=== PATIENT | male | born 1950 | race African-American/Black ===

== ENCOUNTER 2025-03-15 14:11 | Inpatient (IN) | payer MEDICARE, OTHER ==
[~2025-03-15] VITALS: Ht 165.1 cm; Wt 74.8 kg
[2025-03-15 14:51] LABS: PLATELET COUNT (AUTO) 205 K/uL (150-450); RED BLOOD CELL COUNT(AUTO) 4.83 MIL/uL (4.5-6.0); RED CELL DISTRIBUTION WIDTH 15.4 % (11.5-15.0); WHITE BLOOD COUNT (AUTO) 6.0 K/uL (4.3-11.0)
[2025-03-15 14:58] LABS: CALCIUM, SERUM 8.7 mg/dL (8.5-10.1); CREATININE 1.1 mg/dL (0.6-1.3); SODIUM SERUM 144 mmol/L (136-145); UREA NITROGEN, BLOOD 15 mg/dL (7-18)
[2025-03-15 15:04] LABS: ASPARTATE AMINOTRANSFERASE 7 U/L (15-37); INR 1.01 (0.91-1.10); TOTAL PROTEIN, SERUM 7.8 g/dL (6.4-8.2)
[2025-03-15] MEDS ORDERED: METF-440 PO (15:20)
[2025-03-15] MEDS ORDERED: ACET325T53 PO (15:20)
[2025-03-15] MEDS ORDERED: DIVA500T4 PO (15:20)
[2025-03-15] MEDS ORDERED: ASCO500T20 PO (15:20)
[2025-03-15] MEDS ORDERED: FERR-56 PO (15:20)
[2025-03-15] MEDS ORDERED: QUET25TA PO (15:20)
[2025-03-15] MEDS ORDERED: MEMA10TA PO (15:20)
[2025-03-15] MEDS ORDERED: IPRA3AMP23 IH (15:20)
[2025-03-15] MEDS ORDERED: ATOR10TA PO (15:20)
[2025-03-15] MEDS ORDERED: ASPI-1169 PO (15:20)
[2025-03-15] MEDS ORDERED: PANT40TA49 PO (15:20)
[2025-03-15] MEDS ORDERED: CLON0.1T PO (15:20)
[2025-03-15] MEDS ORDERED: MULT-213 PO (15:20)
[2025-03-15] MEDS ORDERED: AMLO-212 PO (15:20)
[2025-03-15] MEDS ORDERED: DOCU100C36 PO (15:20)
[2025-03-15] MEDS: ENOXAPARIN SODIUM 40 MG/0.4 ML DISP.SYRIN SQ SCH (17:30)
[2025-03-15] MEDS ORDERED: ONDANSETRON HCL/PF 4 MG/2 ML VIAL IVP PRN (17:30)
[2025-03-15] MEDS ORDERED: MAGNESIUM HYDROXIDE 30 ML UDC PO PRN ×2 (17:30→23:00)
[2025-03-15] MEDS ORDERED: MAG HYDROX/AL HYDROX/SIMETH 30 ML UDC PO PRN ×2 (17:30→23:00)
[2025-03-15] MEDS ORDERED: ACETAMINOPHEN 325 MG TABLET PO PRN ×3 (17:30→23:00)
[2025-03-15] MEDS ORDERED: ZOLPIDEM TARTRATE 5 MG TABLET PO PRN (17:30)
[2025-03-15] MEDS ORDERED: CLONIDINE HCL 0.1 MG TABLET PO PRN (17:30)
[2025-03-15] MEDS ORDERED: Medication Not On Formulary EA (Ipratropium/Albuterol Sulfate (Duoneb 2.5-0.5 Mg/3 Ml So IH PRN (17:30)
[2025-03-15] MEDS ORDERED: Z GUARD REMEDY 4 OZ OINT TP PRN (17:30)
[2025-03-15] MEDS ORDERED: DIVALPROEX SODIUM 500 MG TABLET.DR PO SCH (21:00)
[2025-03-15] MEDS ORDERED: QUETIAPINE FUMARATE 25 MG TABLET PO SCH (22:00)
[2025-03-15] MEDS: ATORVASTATIN 10 MG TABLET PO SCH (22:00)
[2025-03-15] MEDS ORDERED: TEMAZEPAM 7.5 MG CAPSULE PO PRN ×2 (23:00)
[2025-03-15] MEDS ORDERED: LORAZEPAM 1 MG TABLET PO PRN ×2 (23:00)
[2025-03-15] MEDS ORDERED: ALBUTEROL FS 2.5 MG/0.5 ML VIAL.NEB NEB PRN (23:45)
[2025-03-15] MEDS ORDERED: IPRATROPIUM NEB FS 0.5 MG/2.5 ML AMPUL.NEB IH PRN (23:45)
[2025-03-15 23:47] VITALS: BP 125/78; TEMP 98; O2SAT 98
[2025-03-16] MEDS: BLOOD SUGAR DIAGNOSTIC 1 EACH STRIP IN ONE (00:01)
[2025-03-16] MEDS: PANTOPRAZOLE 40 MG TABLET.DR PO SCH (06:35)
[2025-03-16] MEDS: FERROUS SULFATE (325 MG) 325 MG/TAB TABLET PO SCH (06:35)
[2025-03-16] MEDS ORDERED: PANTOPRAZOLE 40 MG TABLET.DR PO SCH (07:30)
[2025-03-16 08:00] VITALS: BP 142/95; TEMP 97.8; O2SAT 100
[2025-03-16] MEDS: ENSURE ENLIVE CHOC 237 ML CAN PO SCH (08:00)
[2025-03-16] MEDS: DOCUSATE SODIUM 100 MG CAPSULE PO SCH (08:37)
[2025-03-16] MEDS: AMLODIPINE BESYLATE 5 MG TABLET PO SCH (08:37)
[2025-03-16] MEDS: METFORMIN 500 MG TABLET PO SCH (08:37)
[2025-03-16] MEDS: ASCORBIC ACID 500 MG TABLET PO SCH (08:37)
[2025-03-16] MEDS: MEMANTINE HCL 5 MG TABLET PO SCH (08:37)
[2025-03-16] MEDS: ASPIRIN 81 MG TAB.CHEW PO SCH (08:37)
[2025-03-16] MEDS: MULTIVIT W/MINERALS 1 TAB TABLET PO SCH (08:37)
[2025-03-16] MEDS: QUETIAPINE FUMARATE 25 MG TABLET PO SCH ×2 (12:25→21:21)
[2025-03-16 16:00] VITALS: BP 131/68; TEMP 98.6; O2SAT 96
[2025-03-16] MEDS: GLUCERNA SHAKE 237 ML CAN PO SCH (16:30)
[2025-03-16] MEDS ORDERED: ENSURE ENLIVE 237 ML LIQUID (VANILLA) PO SCH (17:00)
[2025-03-16] MEDS: DIVALPROEX SODIUM 500 MG TABLET.DR PO SCH (21:20)
[2025-03-17 08:00] VITALS: BP 128/65; TEMP 98.2; O2SAT 96
[2025-03-17 16:00] VITALS: BP 136/68; TEMP 98.6; O2SAT 98
[2025-03-17 22:15] VITALS: BP 101/63; TEMP 98.6; O2SAT 98
[2025-03-18 08:00] VITALS: BP 140/71; TEMP 98.4; O2SAT 97
[2025-03-18 08:16] VITALS: BP 140/71; TEMP 98.4; O2SAT 97
[2025-03-18 16:10] VITALS: BP 122/72; TEMP 97.7; O2SAT 97
[2025-03-18] MEDS ORDERED: QUETIAPINE FUMARATE 25 MG TABLET PO SCH (17:00)
[2025-03-18 20:42] VITALS: BP 133/64; TEMP 97.8; O2SAT 96
[2025-03-19 08:00] VITALS: BP 109/60; TEMP 97.7; O2SAT 98
[2025-03-19] MEDS: QUETIAPINE FUMARATE 25 MG TABLET PO SCH (09:39)
[2025-03-19 16:00] VITALS: BP 119/79; TEMP 98.5; O2SAT 98
[2025-03-19 16:11] VITALS: BP 119/79; TEMP 98.5; O2SAT 98
[2025-03-19 20:00] VITALS: BP 119/72; TEMP 98.5; O2SAT 99
[2025-03-20 08:00] VITALS: BP 123/51; TEMP 97.2; O2SAT 98
[2025-03-20] MEDS: MUPIROCIN OINT 2% 22 GM TUBE TP SCH (08:42)
[2025-03-20 16:00] VITALS: BP 135/76; TEMP 98.7; O2SAT 99
[2025-03-20 21:02] VITALS: BP 117/60; TEMP 98.3; O2SAT 100
[2025-03-20] MEDS: QUETIAPINE FUMARATE 25 MG TABLET PO SCH (21:27)
[2025-03-21 08:00] VITALS: BP 122/99; TEMP 98.6; O2SAT 95
[2025-03-21 15:00] VITALS: BP 130/71; TEMP 97.8; O2SAT 96
[2025-03-21 20:12] VITALS: BP 134/73; TEMP 97.4; O2SAT 99
[2025-03-22] MEDS: SERTRALINE HCL 25 MG TABLET PO SCH (11:03)
[2025-03-22] MEDS: ONDANSETRON 4 MG TAB.RAPDIS PO SCH (12:56)
[2025-03-22] MEDS ORDERED: ONDANSETRON HCL 4 MG/5 ML SOLUTION PO SCH (13:00)
[2025-03-22 20:00] VITALS: BP 146/79; TEMP 98.5; O2SAT 99
[2025-03-23 08:00] VITALS: BP 127/63; TEMP 97.9; O2SAT 98
[2025-03-23 16:00] VITALS: BP 131/69; TEMP 98.1; O2SAT 100
[2025-03-23 20:00] VITALS: BP 129/83; TEMP 97.7; O2SAT 98
[2025-03-23] MEDS: QUETIAPINE FUMARATE 25 MG TABLET PO SCH (21:29)
[2025-03-24 08:00] VITALS: BP 142/82; TEMP 98.7; O2SAT 96
[2025-03-24 16:00] VITALS: BP 124/95; TEMP 97.8; O2SAT 94
[2025-03-24 20:32] VITALS: BP 120/93; TEMP 97.9; O2SAT 96
[2025-03-25 08:36] VITALS: BP 130/67; O2SAT 98
[2025-03-25 16:00] VITALS: BP 113/71; TEMP 97.7; O2SAT 96
[2025-03-25 20:41] VITALS: BP 133/70; TEMP 98.8; O2SAT 97
[2025-03-26 08:00] VITALS: BP 147/91; TEMP 98.2; O2SAT 98
[2025-03-26] MEDS: SERTRALINE HCL 25 MG TABLET PO SCH (09:14)
[2025-03-26 15:44] VITALS: BP 123/60; TEMP 98.5; O2SAT 98
[2025-03-26 20:53] VITALS: BP 120/60; TEMP 98.2; O2SAT 99
[2025-03-27 08:00] VITALS: BP 138/98; TEMP 98.7; O2SAT 96
[2025-03-27 16:00] VITALS: BP 133/70; TEMP 98.7; O2SAT 97
[2025-03-27] MEDS ORDERED: ALLA266C2 TP (19:08)
[2025-03-27] MEDS ORDERED: MAG30ORA PO (19:08)
[2025-03-27] MEDS ORDERED: ONDA4TAB5 PO (19:08)
[2025-03-27] MEDS ORDERED: MUPI22OI7 TP (19:08)
[2025-03-27] MEDS ORDERED: TEMA7.5C12 PO (19:08)
[2025-03-27] MEDS ORDERED: SERT50TA PO (19:08)
[2025-03-27] MEDS ORDERED: QUET50TA PO (19:08)
[2025-03-27] MEDS ORDERED: MAGN400O6 PO (19:08)
[2025-03-27] MEDS ORDERED: ALBU2.5V13 IH (19:08)
[2025-03-27] MEDS ORDERED: LORA-259 PO (19:08)
[2025-03-27] MEDS ORDERED: NUT.237L28 PO (19:08)
== END 2025-03-27 17:32 | DRG 885 ==
LOC: ER 14:15 → MEDOV2 22:02 → GPS 22:35
PROVIDERS: ADMIT Registered Nurse; ATTEND Internal Medicine
DX: F20.9 Schizophrenia, unspecified (principal); N18.9 Chronic kidney disease, unspecified; G93.41 Metabolic encephalopathy; F29 Unspecified psychosis not due to a substance or known physiological condition; E11.22 Type 2 diabetes mellitus with diabetic chronic kidney disease; E66.9 Obesity, unspecified; R62.7 Adult failure to thrive; F41.9 Anxiety disorder, unspecified; Z20.822 Contact with and (suspected) exposure to COVID-19; Z73.6 Limitation of activities due to disability; R53.1 Weakness; E11.621 Type 2 diabetes mellitus with foot ulcer; L97.529 Non-pressure chronic ulcer of other part of left foot with unspecified severity; M20.42 Other hammer toe(s) (acquired), left foot; Z91.81 History of falling; Z68.27 Body mass index [BMI] 27.0-27.9, adult
CPT/HCPCS: 36415; 71045-TC; 80048-TC; 80076-TC; 80164-TC; 82962-TC; 84484-TC; 85025-TC; 85730-TC; 87081-TC; 92526; 92611; 97112-TC; 97116-TC; 97530-TC; J1650; J2405; Q0162

== ENCOUNTER 2025-03-27 17:40 | Inpatient (IN) | payer MEDICARE, OTHER ==
[~2025-03-27] VITALS: Ht 167.6 cm; Wt 86.0 kg
[~2025-03-27 17:40] MED LIST: ACET325T53 PO; AMLO-212 PO; ASCO500T20 PO; ASPI-1169 PO; ATOR10TA PO; CLON0.1T PO; DIVA500T4 PO; DOCU100C36 PO; FERR-56 PO; IPRA3AMP23 IH; MEMA10TA PO; METF-440 PO; MULT-213 PO; PANT40TA49 PO; QUET25TA PO
[2025-03-27 18:15] VITALS: BP 131/72; TEMP 97.9; O2SAT 97
[2025-03-27] MEDS ORDERED: hydrALAZINE HCL IV 20 MG VIAL IV PRN (19:00)
[2025-03-27] MEDS ORDERED: MORPHINE SULFATE INJ 2 MG/ML DISP.SYRIN IV PRN (19:00)
[2025-03-27] MEDS ORDERED: Z GUARD REMEDY 4 OZ OINT TP PRN (19:00)
[2025-03-27] MEDS ORDERED: ACETAMINOPHEN 325 MG TABLET PO PRN (19:00)
[2025-03-27] MEDS ORDERED: ONDANSETRON HCL/PF 4 MG/2 ML VIAL IVP PRN (19:00)
[2025-03-27] MEDS ORDERED: TEMA7.5C12 PO (19:08)
[2025-03-27] MEDS ORDERED: ALLA266C2 TP (19:08)
[2025-03-27] MEDS ORDERED: NUT.237L28 PO (19:08)
[2025-03-27] MEDS ORDERED: ALBU2.5V13 IH (19:08)
[2025-03-27] MEDS ORDERED: MUPI22OI7 TP (19:08)
[2025-03-27] MEDS ORDERED: ONDA4TAB5 PO (19:08)
[2025-03-27] MEDS ORDERED: MAGN400O6 PO (19:08)
[2025-03-27] MEDS ORDERED: SERT50TA PO (19:08)
[2025-03-27] MEDS ORDERED: LORA-259 PO (19:08)
[2025-03-27] MEDS ORDERED: QUET50TA PO (19:08)
[2025-03-27] MEDS ORDERED: MAG30ORA PO (19:08)
[2025-03-27] MEDS ORDERED: ALBUTEROL FS 2.5 MG/0.5 ML VIAL.NEB NEB PRN (19:30)
[2025-03-27] MEDS ORDERED: DEXTROSE 50%-WATER 50 ML DISP.SYRIN IV PRN (19:30)
[2025-03-27 20:00] VITALS: BP 130/70; TEMP 97.3; TEMP 97.5; O2SAT 96
[2025-03-27] MEDS: IPRATROPIUM NEB FS 0.5 MG/2.5 ML AMPUL.NEB NEB SCH (20:17)
[2025-03-27] MEDS: ALBUTEROL FS 2.5 MG/3 ML VIAL.NEB NEB SCH (20:17)
[2025-03-27 20:18] VITALS: O2SAT 97
[2025-03-27 20:33] VITALS: O2SAT 99
[2025-03-27] MEDS: ENOXAPARIN SODIUM 40 MG/0.4 ML DISP.SYRIN SQ SCH (20:57)
[2025-03-27] MEDS: BLOOD SUGAR DIAGNOSTIC 1 EACH STRIP IN SCH (21:35)
[2025-03-28] VITALS (10 sets, daily range): BP systolic 120–158; BP diastolic 77–80; TEMP 97.9–98.6; O2SAT 93–100
[2025-03-28] MEDS ORDERED: IPRATROPIUM/ALBUTEROL INHALER IH SCH
[2025-03-28] MEDS: IV NS 0.9% 1,000 ML IV SCH (11:00)
[2025-03-28] MEDS ORDERED: LORAZEPAM 1 MG TABLET PO PRN (11:30)
[2025-03-28] MEDS: MUPIROCIN OINT 2% 22 GM TUBE TP SCH (11:30)
[2025-03-28] MEDS ORDERED: TEMAZEPAM 7.5 MG CAPSULE PO PRN (11:30)
[2025-03-28] MEDS: QUETIAPINE FUMARATE 25 MG TABLET PO SCH ×2 (16:36→21:07)
[2025-03-28] MEDS: MEMANTINE HCL 5 MG TABLET PO SCH (16:37)
[2025-03-28] MEDS: DIVALPROEX SODIUM 500 MG TABLET.DR PO SCH (21:07)
[2025-03-28] MEDS: ATORVASTATIN 10 MG TABLET PO SCH (21:07)
[2025-03-29 02:18] VITALS: O2SAT 95
[2025-03-29] MEDS: INSULIN REGULAR, HUMAN 100 UNIT/ML 3 ML VIAL SQ PRN (06:39)
[2025-03-29 07:00] VITALS: BP_SYST 144; BP_DIAS 76; BP_DIAS 86; TEMP 97.5; O2SAT 98
[2025-03-29 08:01] VITALS: O2SAT 96
[2025-03-29 08:16] VITALS: O2SAT 97
[2025-03-29] MEDS: GLUCERNA SHAKE 237 ML CAN PO SCH (08:45)
[2025-03-29] MEDS: SERTRALINE HCL 50 MG TABLET PO SCH (08:46)
[2025-03-29 08:47] VITALS: BP 144/86
[2025-03-29] MEDS: AMLODIPINE BESYLATE 5 MG TABLET PO SCH (08:47)
[2025-03-29] MEDS: FERROUS SULFATE (325 MG) 325 MG/TAB TABLET PO SCH (08:47)
[2025-03-29] MEDS: PANTOPRAZOLE 40 MG TABLET.DR PO SCH (08:47)
[2025-03-29] MEDS: ASPIRIN 81 MG TAB.CHEW PO SCH (08:47)
[2025-03-29] MEDS: METFORMIN 500 MG TABLET PO SCH (08:47)
[2025-03-29] MEDS: ASCORBIC ACID 500 MG TABLET PO SCH (08:47)
[2025-03-29 18:05] LABS: AMPHETAMINE, URINE NEGATIVE (NEGATIVE); BARBITURATE, URINE NEGATIVE (NEGATIVE); BENZODIAZEPINE, URINE NEGATIVE (NEGATIVE); CANNABINOID, URINE NEGATIVE (NEGATIVE); COCCAINE, URINE NEGATIVE (NEGATIVE); OPIATE, URINE NEGATIVE (NEGATIVE)
== END 2025-03-29 13:30 | DRG 56 ==
LOC: MED 17:40
PROVIDERS: ADMIT Internal Medicine; ATTEND Internal Medicine
DX: I69.318 Other symptoms and signs involving cognitive functions following cerebral infarction (principal); G93.41 Metabolic encephalopathy; R62.7 Adult failure to thrive; E11.22 Type 2 diabetes mellitus with diabetic chronic kidney disease; L03.032 Cellulitis of left toe; E11.51 Type 2 diabetes mellitus with diabetic peripheral angiopathy without gangrene; E66.9 Obesity, unspecified; I12.9 Hypertensive chronic kidney disease with stage 1 through stage 4 chronic kidney disease, or unspecified chronic kidney disease; J44.9 Chronic obstructive pulmonary disease, unspecified; F20.9 Schizophrenia, unspecified; N18.9 Chronic kidney disease, unspecified; G93.89 Other specified disorders of brain; E11.621 Type 2 diabetes mellitus with foot ulcer; E78.5 Hyperlipidemia, unspecified; R53.1 Weakness; F41.9 Anxiety disorder, unspecified; R26.81 Unsteadiness on feet; L97.529 Non-pressure chronic ulcer of other part of left foot with unspecified severity
CPT/HCPCS: 70450-TC; 94799-TC; 97110-TC; 97116-TC; 97530-TC; 97535-TC; G0378; J1650; J1815; J7030